=== PATIENT | female | born 1985 | race Caucasian/White ===

== ENCOUNTER 2020-05-09 07:58 | Outpatient (RCR) | payer OTHER, SELFPAY | END 2020-08-07 23:59 | disposition home or self-care (01) | LOC: ANHVASCINF 07:58 | PROVIDERS: PCP Family Medicine; Visit Provider Internal Medicine Endocrinology, Diabetes & Metabolism | DX: R94.7 Abnormal results of other endocrine function studies (principal) | CPT/HCPCS: 36415; 82533; 96372; J0834 ==